=== PATIENT | female | born 1955 | race Caucasian/White ===

== ENCOUNTER 2017-08-10 20:55 | Emergency (ER) | payer BC ==
--- NOTE | 2017-08-10 21:14 | EDM.PDOC ---
ED HPI GENERAL MEDICAL PROBLEM - General Chief Complaint: Genitourinary Problem Stated Complaint: red urine, bladder and low back pain Time Seen by Provider: 08/10/17 21:03 Source of Information: Reports: Patient History Limitations: Reports: No Limitations - History of Present Illness INITIAL COMMENTS - FREE TEXT/NARRATIVE: This patient is a 62 year old female that presents to the ER. Patient reports that yesterday she had mild right flank pain pain to bladder. Then earlier today at about 4pm she noticed increase in pain with pink tinged urine. She reports then about 20 minutes ago she had bright red blood in her urine with even more pain Patient denies cifuentes, dizziness, n, v, d, f, cp, soa, bowel changes. Onset: Today Onset Date: 08/10/17 Onset Time: 16:00 Location: Reports: Back, Radiates to (bladder) Quality: Reports: Burning Severity: Moderate Improves with: Reports: None Worsens with: Reports: None Associated Symptoms: Denies: Confusion, Chest Pain, Cough, cough w sputum, Diaphoresis, Fever/Chills, Headaches, Loss of Appetite, Malaise, Nausea/Vomiting , Rash, Seizure, Shortness of Breath, Syncope, Weakness Lower Abdomen Pain Score (Numeric/FACES): 7 Right Lower Back Pain Score (Numeric/FACES): 7 - Related Data Allergies Allergy/AdvReac Type Severity Reaction Status Date / Time ibuprofen Allergy blood in Verified 08/10/17 20:56 stools Home Meds: Home Meds Ranitidine [Zantac] 150 tab PO DAILY 04/14/14 [History] Fenofibrate [Lipofen] 1 tab PO DAILY 08/10/17 [History] Simvastatin [Zocor] 1 tab PO DAILY 08/10/17 [History] Social & Family History - Tobacco Use Years of Tobacco use: 45 Second Hand Smoke Exposure: No - Alcohol Use Days Per Week of Alcohol Use: 0 - Recreational Drug Use Recreational Drug Use: No ED ROS GENERAL - Review of Systems Review Of Systems: See Below Constitutional: Reports: No Symptoms HEENT: Reports: No Symptoms Respiratory: Reports: No Symptoms Cardiovascular: Reports: No Symptoms Endocrine: Reports: No Symptoms GI/Abdominal: Denies: Abdominal Pain, Nausea, Vomiting : Reports: Dysuria, Flank Pain (right), Hematuria, Pain (painful urination. Pain in bladder. ), Urgency Musculoskeletal: Reports: No Symptoms Skin: Reports: No Symptoms Neurological: Reports: No Symptoms Psychiatric: Reports: No Symptoms Hematologic/Lymphatic: Reports: No Symptoms Immunologic: Reports: No Symptoms ED EXAM, GI/ABD - Physical Exam Exam: See Below Exam Limited By: No Limitations General Appearance: Alert, WD/WN, No Apparent Distress Ears: Normal External Exam, Normal Canal, Hearing Grossly Normal, Normal TMs Nose: Normal Inspection, Normal Mucosa, No Blood Throat/Mouth: Normal Inspection, Normal Lips, Normal Teeth, Normal Gums, Normal Oropharynx, Normal Voice, No Airway Compromise Head: Atraumatic, Normocephalic Neck: Normal Inspection, Supple, Non-Tender, Full Range of Motion Respiratory/Chest: No Respiratory Distress, Lungs Clear, Normal Breath Sounds, No Accessory Muscle Use Cardiovascular: Normal Peripheral Pulses, Regular Rate, Rhythm, No Edema, No Gallop, No JVD, No Murmur, No Rub GI/Abdominal Exam: Soft, Non-Tender, No Organomegaly, No Distention, No Mass, Pelvis Stable Back Exam: Normal Inspection, Full Range of Motion, CVA Tenderness (R). No: CVA Tenderness (L), Decreased Range of Motion, Muscle Spasm, Paraspinal Tenderness, Vertebral Tenderness Extremities: Normal Inspection, Normal Range of Motion, Non-Tender, No Pedal Edema, Normal Capillary Refill Neurological: Alert, Oriented, Normal Gait, No Motor/Sensory Deficits Psychiatric: Normal Affect, Normal Mood Skin Exam: Warm, Dry, Intact, Normal Color, No Rash Lymphatic: No Adenopathy Course - Vital Signs Last Recorded V/S: Last Vital Signs Temp 98.5 F 08/10/17 20:55 Pulse 91 08/10/17 20:55 Resp 18 08/10/17 20:55 BP 145/64 H 08/10/17 20:55 Pulse Ox 97 08/10/17 20:55 - Orders/Labs/Meds Orders: Active Orders 24 hr Category Date Time Status Abdomen Pelvis wo Cont [CT] Stat Exams 08/10/17 21:08 Taken Labs: Laboratory Tests 08/10/17 08/10/17 08/10/17 Range/Units 21:07 21:07 21:07 WBC 10.1 H (5.0-10.0) 10^3/uL RBC 4.46 (4.00-5.50) 10^6/uL Hgb 13.7 (12.0-16.0) g/dL Hct 41.8 (37.0-47.0) % MCV 93.7 (82.0-94.0) fL MCH 30.7 (27.0-32.0) pg MCHC 32.8 L (33.0-38.0) g/dL RDW Coeff of Fausto 13.9 (11.0-15.0) % Plt Count 218 (150-400) 10^3/uL Neut % (Auto) 75.2 (35-85) % Lymph % (Auto) 15.6 (10-55) % Sabine % (Auto) 8.5 (0-16) % Eos % (Auto) 0.6 (0-5) % Baso % (Auto) 0.1 (0-3) % Neut # (Auto) 7.59 H (1.80-7.00) 10^3/uL Lymph # (Auto) 1.58 (1.00-4.80) 10^3/uL Sabine # (Auto) 0.86 H (0.00-0.80) 10^3/uL Eos # (Auto) 0.06 (0.00-0.45) 10^3/uL Baso # (Auto) 0.01 10^3/uL Sodium 139 (136-145) mEq/L Potassium 3.5 (3.5-5.0) mEq/L Chloride 103 (98-106) mEq/L Carbon Dioxide 27 (21-32) mmol/L BUN 11 (7-18) mg/dL Creatinine 1.1 H (0.6-1.0) mg/dL Est Cr Clr Drug Dosing 40.86 mL/min Estimated GFR (MDRD) 50 L (>=60) mL/min Glucose 141 H D (75-99) mg/dL Calcium 9.0 (8.4-10.1) mg/dL Total Bilirubin 0.2 (0.0-1.0) mg/dL AST 4 L (15-37) U/L ALT 13 (12-78) U/L Alkaline Phosphatase 78 (46-116) U/L Total Protein 7.1 (6.4-8.2) g/dL Albumin 3.6 (3.4-5.0) g/dL Urine Color Red (YELLOW) Urine Appearance Slightly cloudy (CLEAR) Urine pH 6.5 (4.5-8.0) Ur Specific [place] 1.020 (1.003-1.020) Urine Protein >=300 H (NEGATIVE) mg/dL Urine Glucose (UA) Negative (NEGATIVE) mg/dL Urine Ketones Trace H (NEGATIVE) mg/dL Urine Occult Blood Large H (NEGATIVE) Urine Nitrite Positive H (NEGATIVE) Urine Bilirubin Small H (NEGATIVE) Urine Urobilinogen 2.0 H (0.2-1.0) EU/dL Ur Leukocyte Esterase Large H (NEGATIVE) Urine RBC Packed H (0-5) /HPF Urine WBC Not seen (0-5) /HPF Ur Squamous Epith Cells Occasional H (NOT SEEN) /HPF Urine Bacteria Occasional H (NOT SEEN) /HPF Meds: Medications Discontinued Medications Generic Name Dose Route Start Last Admin Trade Name Freq PRN Reason Stop Dose Admin Ceftriaxone Sodium 1 gm 08/10/17 21:17 08/10/17 21:30 Rocephin IVPUSH 08/10/17 21:18 1 gm ONETIME ONE Administration Sodium Chloride Confirm 08/10/17 21:21 08/10/17 21:35 Normal Saline Administered 08/10/17 21:22 1,000 ml Dose Administration 1,000 mls @ as directed .ROUTE .STK-MED ONE Ketorolac Tromethamine 30 mg 08/10/17 21:59 08/10/17 22:47 Toradol IVPUSH 08/10/17 22:00 30 mg ONETIME ONE Administration - Radiology Interpretation Free Text/Narrative:: CT: Renal; Discussed with radiologist: Ureter inflammation. No hydro. No stone seen. CT Results Date: 08/10/17 CT Results Time: 23:00 Departure - Departure Time of Disposition: 23:19 Disposition: Home, Self-Care 01 Condition: Good Clinical Impression: UTI, Urinary tract infectious disease - Discharge Information Instructions: Urinary Tract Infection, Adult, [id number] Referrals: Brian Kimble MD [Primary Care Provider] - Forms: ED Department Discharge Additional Instructions: Followup with your primary care provider Return to the ER for worsening of condition or any emergent concerns Increase fluids Pyridium 100mg 1 pill three times a day for 2 days #6 no refill Bactrim DS 1 pill twice a day for 7 days #14 no refill - My Orders Last 24 Hours: My Active Orders 08/10/17 21:08 Abdomen Pelvis wo Cont [CT] Stat - Assessment/Plan Last 24 Hours: My Active Orders 08/10/17 21:08 Abdomen Pelvis wo Cont [CT] Stat Plan: PLEASE SEE RN NOTE FOR PFSH.
[2017-08-10] MEDS ORDERED: cefTRIAXone 1 GM Vial IVPUSH ONE (21:17)
[2017-08-10] MEDS ORDERED: Sodium Chloride 0.9% 1,000 ML ONE (21:21)
[2017-08-10] MEDS ORDERED: Ketorolac 30 MG/ML SDV IVPUSH ONE (21:59)
== END 2017-08-10 23:32 | disposition home or self-care (01) ==
LOC: CC.ED 20:55
DX: N39.0 Urinary tract infection, site not specified (principal); Z79.899 Other long term (current) drug therapy; Z88.6 Allergy status to analgesic agent
CPT/HCPCS: 36415; 74176; 80053; 81001; 85025; 96361; 96374; 96375; 99284; J0696; J1885; J7030

== ENCOUNTER 2019-11-24 20:39 | Emergency (ER) | payer MEDICARE, BC, OTHER ==
[2019-11-24] MEDS ORDERED: Acetaminophen 325 MG Tab PO ONE (20:49)
--- NOTE | 2019-11-24 21:33 | EDM.PDOC ---
ED HPI GENERAL MEDICAL PROBLEM - General Chief Complaint: Fever Stated Complaint: Shakey, chills Time Seen by Provider: 11/24/19 21:05 Source of Information: Reports: Patient History Limitations: Reports: No Limitations - History of Present Illness INITIAL COMMENTS - FREE TEXT/NARRATIVE: Shiva is a 64 yo female who presents to the ED with complaints of all of a sudden becoming extremely shaky. States out of no where she got the chills. Admits she was suppose to work at the [employer] [place] and she called up and the nurse told her to come into the ED to be checked out. States she was feeling well today up until the shakes and chills. States she does have a headache and some sinus congestion. Is concerned of influenza as it is going around the halfway and they started everyone on Tamiflu. She admits she took her first dose of Tamiflu this afternoon and is wondering if she had a reaction to that as well. She denies any shortness of breath. Admits she has had a dry cough. States one of the residents at the halfway coughed on her last weekend who was diagnosed with influenza. She does admit to being extremely anxious as she doesn't like coming in to the doctor. - Related Data Allergies Allergy/AdvReac Type Severity Reaction Status Date / Time ibuprofen Allergy blood in Verified 11/24/19 20:41 stools nitrofurantoin Allergy Cannot Verified 11/24/19 20:41 [From Macrobid] Remember Sulfa (Sulfonamide Allergy Itching Verified 11/24/19 20:41 Antibiotics) Home Meds: Home Meds Fenofibrate [Lipofen] 48 mg PO DAILY 08/10/17 [History] Aspirin [Huber Chewable Aspirin] 81 mg PO DAILY 07/02/19 [History] Omeprazole 20 mg PO DAILY 07/02/19 [History] Prasugrel HCl [Effient] 10 mg PO DAILY 07/23/19 [History] Rosuvastatin Calcium 40 mg PO DAILY 07/23/19 [History] lisinopriL [Lisinopril] 10 mg PO DAILY 07/23/19 [History] Past Medical History Cardiovascular History: Reports: High Cholesterol, Hypertension Other Cardiovascular History: had cp, saw JN, cardiolite stress ordered, done (had some ST elevation and cp after the Lexiscan was injected. Sent to [facility], had stents on 07-03-19 and 07-06-19; says she has had CA of the uterus. She quit smoking for 2 days now, trying to use nicotene lozenges. Discussed. Since home, she denies having any chest pain; Says he has a right hip that bothers her; insertion site for cath right wrist healing; denies any ankle edema. Says she has some varicose veins in her legs, also says she has some kidney stents; saw Kasey for followup on 07-16-19--she listened to her heart and lungs Genitourinary History: Reports: Other (See Below) Other Genitourinary History: UTI'S Oncologic (Cancer) History: Reports: Uterine Social & Family History - Family History Family Medical History: Noncontributory - Tobacco Use Smoking Status *Q: Current Every Day Smoker Years of Tobacco use: 50 Packs/Tins Daily: 1 - Caffeine Use Caffeine Use: Reports: Coffee - Recreational Drug Use Recreational Drug Use: No ED ROS GENERAL - Review of Systems Review Of Systems: Comprehensive ROS is negative, except as noted in HPI. Constitutional: Reports: Fever, Chills, Fatigue HEENT: Reports: Rhinitis, Sinus Problem Respiratory: Reports: Cough. Denies: Shortness of Breath, Wheezing, Pleuritic Chest Pain, Sputum Cardiovascular: Reports: Blood Pressure Problem. Denies: Chest Pain, Edema, Lightheadedness, Palpitations GI/Abdominal: Reports: No Symptoms. Denies: Abdominal Pain, Bloody Stool, Constipation, Diarrhea, Nausea, Vomiting : Reports: No Symptoms Musculoskeletal: Reports: No Symptoms Skin: Reports: No Symptoms Neurological: Reports: Headache. Denies: Confusion, Dizziness, Syncope, Weakness Psychiatric: Reports: Anxiety ED EXAM, GENERAL - Physical Exam Exam: See Below Exam Limited By: No Limitations General Appearance: Alert, No Apparent Distress, Anxious Eye Exam: Bilateral Eye: Conjunctival Injection Ears: Hearing Loss (bilateral hearing aids) Nose: Normal Inspection, No Blood, Clear Rhinorrhea Throat/Mouth: Other (mild posterior erythema, no exudate. ) Head: Atraumatic, Normocephalic. No: Facial Tenderness, Sinus Tenderness Neck: Normal Inspection, Supple. No: Lymphadenopathy (L), Lymphadenopathy (R) Respiratory/Chest: No Respiratory Distress, Lungs Clear, Normal Breath Sounds Cardiovascular: Regular Rate, Rhythm, No Edema, No Murmur GI/Abdominal: Normal Bowel Sounds, Soft, Non-Tender, No Mass Extremities: Normal Inspection Neurological: Alert, Oriented, Normal Cognition, No Motor/Sensory Deficits Psychiatric: Normal Affect, Normal Mood, Anxious Skin Exam: Dry, Intact, Increased Warmth EKG INTERPRETATION EKG Date: 11/24/19 Time: 21:00 Rhythm: NSR Rate (Beats/Min): 80 QRS: Normal ST-T: Normal QT: Normal Course - Vital Signs Last Recorded V/S: Last Vital Signs Temp 100.8 F H 11/24/19 21:00 Pulse 88 11/24/19 21:00 Resp 18 11/24/19 20:39 BP 164/78 H 11/24/19 21:00 Pulse Ox 99 11/24/19 20:39 - Orders/Labs/Meds Orders: Active Orders 24 hr Category Date Time Status EKG Documentation Completion [RC] STAT Care 11/24/19 20:49 Active Meds: Medications Discontinued Medications Generic Name Dose Route Start Last Admin Trade Name Shi PRN Reason Stop Dose Admin Acetaminophen 650 mg 11/24/19 20:49 11/24/19 20:59 Tylenol PO 11/24/19 20:50 650 mg NOW ONE Administration Departure - Departure Time of Disposition: 21:45 Disposition: Home, Self-Care 01 Clinical Impression: Fever and chills, Exposure to influenza - Discharge Information Instructions: Fever, Adult, [id number], Viral Illness, Adult, Influenza, Adult, [id number] Forms: ED Department Discharge Additional Instructions: 1) Tylenol every 4-6 hours as needed for fevers 2) Increase water intake 3) Rest 5) May use over the counter therapies for symptomatic cares 6) May stop Tamiflu if concerns of intolerance to medication 7) If any symptoms as discussed would arise, advise returning to ED. Sepsis Event Note - Evaluation Sepsis Screening Result: No Definite Risk - Focused Exam Vital Signs: Vital Signs Temp Pulse Resp BP Pulse Ox 11/24/19 21:00 100.8 F H 88 164/78 H 11/24/19 20:39 100.2 F 84 18 199/70 H 99 Date Exam was Performed: 11/24/19 Time Exam was Performed: 21:50 - Problem List & Annotations (1) Exposure to influenza SNOMED Code(s): 371423687 Code(s): Z20.828 - CONTACT W AND EXPOSURE TO OTH VIRAL COMMUNICABLE DISEASES Status: Acute Current Visit: Yes (2) Fever and chills SNOMED Code(s): 820519619 Code(s): R50.9 - FEVER, UNSPECIFIED Status: Acute Current Visit: Yes - My Orders Last 24 Hours: My Active Orders 11/24/19 20:49 EKG Documentation Completion [RC] STAT - Assessment/Plan Last 24 Hours: My Active Orders 11/24/19 20:49 EKG Documentation Completion [RC] STAT Plan: Influenza screen negative tonight. Tylenol given in ED and fever started to come down. Will discharge home at this time. Patient given instructions into detail if any further symptoms would arise or any concerns at all, advise returning to ED. Shiva was in agreement.
== END 2019-11-24 22:08 | disposition home or self-care (01) ==
LOC: CC.ED 20:39
DX: R50.9 Fever, unspecified (principal); E78.00 Pure hypercholesterolemia, unspecified; I10 Essential (primary) hypertension; H91.93 Unspecified hearing loss, bilateral; Z20.828 Contact with and (suspected) exposure to other viral communicable diseases; Z88.6 Allergy status to analgesic agent; Z88.2 Allergy status to sulfonamides; Z88.1 Allergy status to other antibiotic agents; Z79.899 Other long term (current) drug therapy; Z79.82 Long term (current) use of aspirin; Z79.02 Long term (current) use of antithrombotics/antiplatelets; Z87.891 Personal history of nicotine dependence
CPT/HCPCS: 87804; 93005; 93010; 99284; 99284-25; A9270-GY

== ENCOUNTER → 2020-02-19 | Day surgery (SDC) | payer MEDICARE, BC ==
[~2020-02-19] MED LIST: Lactated Ringers 1,000 ML IV SCH; Propofol 200 MG/20 ML SDV IV ONE
--- NOTE | 2020-02-19 11:34 | OR ---
DATE OF OPERATION: 02/19/2020 PREOPERATIVE DIAGNOSIS: HISTORY OF POLYPS. POSTOPERATIVE DIAGNOSIS: HISTORY OF POLYPS. SURGEON: Brian Kimble MD PROCEDURE: FULL-LENGTH COLONOSCOPY WITH SNARE POLYPECTOMY X1, FORCEPS POLYP REMOVAL X2. ANESTHESIA: MAC. COMPLICATIONS: None. SPECIMEN: 1. Large villous adenoma, proximal ascending colon. 2. Small sessile polyp, proximal ascending colon. 3. Tubular adenoma, rectosigmoid junction, less than 0.5 cm. FINDINGS: 1. Full-length colonoscopy. 2. Mild sigmoid diverticulosis. 3. Villous adenoma just outside the cecal pouch. 4. Small sessile polyp, proximal ascending colon. 5. Tubular adenoma, rectosigmoid junction. RECOMMENDATIONS: Given the size of the patient's villous lesion in her cecal area, recommend a followup colonoscopy in a year. INDICATIONS: The patient had prior colonoscopy with polyps removed approximately 6 years ago. She was sent for a routine followup in that regard. DESCRIPTION OF PROCEDURE: The patient was prepped and draped, placed in the left lateral decubitus position. A lubricated Olympus colonoscope was inserted and with relative ease advanced to the cecum. The patient is quite tortuous in the sigmoid and transverse areas, but the scope did pass safely and easily. We were able to get into the cecal pouch and directly visualize the valve. A lot of stool present in that area, but we were able to irrigate and suction almost all of it. Just outside the cecal pouch in the most proximal ascending colon, the patient had a relatively flat villous lesion, well over a centimeter along the haustral fold. We were able to remove the majority of it with a snare. About 25% of it was too flat to get into a snare and we removed with 3 forceps biopsies. Just past this in the more mid ascending colon was another small sessile polyp removed with a forceps x2. The rest of the ascending, transverse, descending colons were benign. The patient does have scattered diverticula throughout the sigmoid region. The sigmoid colon itself had no other lesions. In the distal sigmoid, rectosigmoid region, the patient had another stalked small adenoma. It was very difficult to get at, it was at a large turn in her colon which was hard to keep the scope involved, then we were able to get forceps on it twice and remove it in its majority. The rectal vault appeared benign. The patient had a very shallow rectum, it was hard to retroflex, but upon direct withdrawal, no other lesions seen. Air was then suctioned, scope removed without complication. MARY JANE/FLOR /[id number]
== END ==
LOC: CC.SDS 07:30
PROVIDERS: ATTEND Family Medicine
DX: Z12.11 Encounter for screening for malignant neoplasm of colon (principal); D12.0 Benign neoplasm of cecum; D12.2 Benign neoplasm of ascending colon; D12.7 Benign neoplasm of rectosigmoid junction; K57.30 Diverticulosis of large intestine without perforation or abscess without bleeding; I10 Essential (primary) hypertension; E78.5 Hyperlipidemia, unspecified; E78.1 Pure hyperglyceridemia; K21.9 Gastro-esophageal reflux disease without esophagitis; F17.210 Nicotine dependence, cigarettes, uncomplicated; I25.10 Atherosclerotic heart disease of native coronary artery without angina pectoris; Z86.010 Personal history of colon polyps; Z98.890 Other specified postprocedural states; Z78.0 Asymptomatic menopausal state; Z95.5 Presence of coronary angioplasty implant and graft; Z79.899 Other long term (current) drug therapy; Z79.82 Long term (current) use of aspirin
CPT/HCPCS: 00812; 45385; 88305; J2704; J7120

== ENCOUNTER 2021-02-21 12:48 | Inpatient (IN) | payer MEDICARE, BC ==
[2021-02-21] MEDS ORDERED: Ondansetron 4 MG/2 ML SDV IV PRN (13:40)
[2021-02-21] MEDS ORDERED: Acetaminophen 325 MG Tab PO PRN (13:40)
[2021-02-21 14:23] LABS: CHLORIDE,CL 98 mEq/L (98-106); SODIUM,NA 134 mEq/L (136-145)
[2021-02-21] MEDS: Albuterol/Ipratropium 3.0-0.5 MG/3 ML Neb Soln NEB PRN (14:45)
[2021-02-21] MEDS: cefTRIAXone 1 GM Vial IVPUSH SCH (14:45)
[2021-02-21] MEDS: Sodium Chloride 0.9% 1,000 ML IV SCH (14:45)
[2021-02-21] MEDS ORDERED: Temazepam 15 MG Cap PO PRN (20:00)
[2021-02-22] MEDS: Sodium Chloride 0.9% 1,000 ML IV SCH ×2 (03:51→17:16)
[2021-02-22] MEDS ORDERED: Fenofibrate 160 MG Tab PO SCH (08:00)
[2021-02-22] MEDS ORDERED: Pantoprazole 40 MG Tab.CR PO SCH (08:00)
[2021-02-22] MEDS: Albuterol/Ipratropium 3.0-0.5 MG/3 ML Neb Soln NEB PRN ×3 (08:04→21:12)
--- NOTE | 2021-02-22 08:38 | PCM.PN ---
- General Info Date of Service: 02/22/21 Admission Dx/Problem (Free Text): UTI Tachycardia Subjective Update: Patient admits to ongoing fatigue, weakness and malaise today. "just don't feel well". Is coughing frequently, moist. Admits to audible wheezing. Gets short of breath with exertion. Had temp of 101 last night, afebrile this am. Has not been eating well. Admits that burning with urination is getting better. Functional Status: Reports: Pain Controlled, Tolerating Diet, Ambulating, Urinating - Review of Systems General: Reports: Fever, Weakness, Fatigue, Malaise HEENT: Reports: Post Nasal Drip. Denies: Eye Pain, Sinus Congestion Pulmonary: Reports: Shortness of Breath, Cough, Wheezing Cardiovascular: Denies: Chest Pain, Edema, Lightheadedness Gastrointestinal: Reports: Abdominal Pain. Denies: Diarrhea, Nausea, Vomiting Genitourinary: Reports: Frequency, Burning Musculoskeletal: Reports: No Symptoms Skin: Reports: No Symptoms Neurological: Reports: No Symptoms - Patient Data Vitals - Most Recent: Last Vital Signs Temp 98.9 F 02/22/21 03:51 Pulse 62 02/22/21 03:51 Resp 18 02/22/21 03:51 BP 143/65 H 02/22/21 03:51 Pulse Ox 91 L 02/22/21 03:51 Weight - Most Recent: 161 lb 4.8 oz I&O - Last 24 Hours: Intake & Output 02/21/21 02/22/21 02/22/21 22:59 06:59 14:59 Intake Total 983 Balance 983 Lab Results Last 24 Hours: Laboratory Results - last 24 hr 02/21/21 02/21/21 02/21/21 Range/Units 12:59 13:39 14:15 WBC 4.7 L (5.0-10.0) 10^3/uL RBC 4.73 (4.00-5.50) 10^6/uL Hgb 14.1 (12.0-16.0) g/dL Hct 41.8 (37.0-47.0) % MCV 88.4 (82.0-94.0) fL MCH 29.8 (27.0-32.0) pg MCHC 33.7 (33.0-38.0) g/dL RDW Coeff of Fausto 14.2 (11.0-15.0) % Plt Count 188 (150-400) 10^3/uL Neut % (Auto) 63.7 (35-85) % Lymph % (Auto) 24.3 (10-55) % [place] % (Auto) 11.8 (0-16) % Eos % (Auto) 0.2 (0-5) % Baso % (Auto) 0 (0-3) % Neut # (Auto) 3.01 (1.80-7.00) 10^3/uL Lymph # (Auto) 1.15 (1.00-4.80) 10^3/uL [place] # (Auto) 0.56 (0.00-0.80) 10^3/uL Eos # (Auto) 0.01 (0.00-0.45) 10^3/uL Baso # (Auto) 0.00 10^3/uL Sodium 134 L (136-145) mEq/L Potassium 3.9 (3.5-5.0) mEq/L Chloride 98 (98-106) mEq/L Carbon Dioxide 23 (21-32) mmol/L BUN 12 (7-18) mg/dL Creatinine 1.2 H (0.6-1.0) mg/dL Est Cr Clr Drug Dosing TNP Estimated GFR (MDRD) 45 L (>=60) mL/min Glucose 115 H (75-99) mg/dL Lactic Acid (0.4-2.0) mmol/L Calcium 9.0 (8.4-10.1) mg/dL Total Bilirubin 0.6 (0.0-1.0) mg/dL AST 18 (15-37) U/L ALT 28 (12-78) U/L Alkaline Phosphatase 90 (46-116) U/L Lactate Dehydrogenase 186 (100-190) U/L Creatine Kinase 39 (21-215) U/L Troponin I < 0.017 (0.00-0.06) ng/mL C-Reactive Protein 1.1 H (0.2-0.8) mg/dL Total Protein 7.7 (6.4-8.2) g/dL Albumin 3.8 (3.4-5.0) g/dL Urine Color Yellow (YELLOW) Urine Appearance Cloudy (CLEAR) Urine pH 6.5 (4.5-8.0) Ur Specific [place] 1.020 (1.003-1.020) Urine Protein 30 H (NEGATIVE) mg/dL Urine Glucose (UA) Negative (NEGATIVE) mg/dL Urine Ketones Negative (NEGATIVE) mg/dL Urine Occult Blood Small H (NEGATIVE) Urine Nitrite Positive H (NEGATIVE) Urine Bilirubin Negative (NEGATIVE) Urine Urobilinogen 1.0 (0.2-1.0) EU/dL Ur Leukocyte Esterase Moderate H (NEGATIVE) Urine RBC 5-10 H (0-5) /HPF Urine WBC >100 H (0-5) /HPF Ur Squamous Epith Cells Few H (NOT SEEN) /HPF Urine Bacteria Many H (NOT SEEN) /HPF Urinalysis Comment 02/21/21 Range/Units 14:15 WBC (5.0-10.0) 10^3/uL RBC (4.00-5.50) 10^6/uL Hgb (12.0-16.0) g/dL Hct (37.0-47.0) % MCV (82.0-94.0) fL MCH (27.0-32.0) pg MCHC (33.0-38.0) g/dL RDW Coeff of Fausto (11.0-15.0) % Plt Count (150-400) 10^3/uL Neut % (Auto) (35-85) % Lymph % (Auto) (10-55) % [place] % (Auto) (0-16) % Eos % (Auto) (0-5) % Baso % (Auto) (0-3) % Neut # (Auto) (1.80-7.00) 10^3/uL Lymph # (Auto) (1.00-4.80) 10^3/uL [place] # (Auto) (0.00-0.80) 10^3/uL Eos # (Auto) (0.00-0.45) 10^3/uL Baso # (Auto) 10^3/uL Sodium (136-145) mEq/L Potassium (3.5-5.0) mEq/L Chloride (98-106) mEq/L Carbon Dioxide (21-32) mmol/L BUN (7-18) mg/dL Creatinine (0.6-1.0) mg/dL Est Cr Clr Drug Dosing Estimated GFR (MDRD) (>=60) mL/min Glucose (75-99) mg/dL Lactic Acid 1.3 (0.4-2.0) mmol/L Calcium (8.4-10.1) mg/dL Total Bilirubin (0.0-1.0) mg/dL AST (15-37) U/L ALT (12-78) U/L Alkaline Phosphatase (46-116) U/L Lactate Dehydrogenase (100-190) U/L Creatine Kinase (21-215) U/L Troponin I (0.00-0.06) ng/mL C-Reactive Protein (0.2-0.8) mg/dL Total Protein (6.4-8.2) g/dL Albumin (3.4-5.0) g/dL Urine Color (YELLOW) Urine Appearance (CLEAR) Urine pH (4.5-8.0) Ur Specific [place] (1.003-1.020) Urine Protein (NEGATIVE) mg/dL Urine Glucose (UA) (NEGATIVE) mg/dL Urine Ketones (NEGATIVE) mg/dL Urine Occult Blood (NEGATIVE) Urine Nitrite (NEGATIVE) Urine Bilirubin (NEGATIVE) Urine Urobilinogen (0.2-1.0) EU/dL Ur Leukocyte Esterase (NEGATIVE) Urine RBC (0-5) /HPF Urine WBC (0-5) /HPF Ur Squamous Epith Cells (NOT SEEN) /HPF Urine Bacteria (NOT SEEN) /HPF Urinalysis Comment Brandon Results Last 24 Hours: Microbiology 02/21/21 13:39 Anaerobic Blood Culture - Final Blood - Venous Med Orders - Current: Current Medications Acetaminophen (Acetaminophen 325 Mg Tab) 650 mg PO Q4H PRN PRN Reason: Pain (Mild 1-3)/fever Last Admin: 02/21/21 23:39 Dose: 650 mg Documented by: Albuterol/Ipratropium (Albuterol/Ipratropium 3.0-0.5 Mg/3 Ml Neb Soln) 3 ml NEB Q4H PRN PRN Reason: Shortness Of Breath/wheezing Last Admin: 02/22/21 08:04 Dose: 3 ml Documented by: Aspirin (Aspirin 81 Mg Tab.Chew) 81 mg PO DAILY [facility] Atorvastatin Calcium (Atorvastatin 20 Mg Tab) 80 mg PO DAILY@1630 [facility] Ceftriaxone Sodium (Ceftriaxone 1 Gm Vial) 1 gm IVPUSH DAILY@1200 [facility] Last Admin: 02/21/21 14:45 Dose: 1 gm Documented by: Enoxaparin Sodium (Enoxaparin 40 Mg/0.4 Ml Syringe) 40 mg SUBCUT DAILY@1200 [facility] Fenofibrate (Fenofibrate 160 Mg Tab) 80 mg PO DAILY@1630 [facility] Sodium Chloride (Normal Saline) 1,000 mls @ 75 mls/hr IV ASDIRECTED [facility] Last Admin: 02/22/21 03:51 Dose: 75 mls/hr Documented by: Lisinopril (Lisinopril 20 Mg Tab) 20 mg PO DAILY [facility] Ondansetron HCl (Ondansetron 4 Mg/2 Ml Sdv) 4 mg IV Q6H PRN PRN Reason: Nausea/Vomiting Pantoprazole Sodium (Pantoprazole 40 Mg Tab.Cr) 40 mg PO DAILY@1630 [facility] Senna/Docusate Sodium (Docusate Sodium/Sennosides 50-8.6 Mg Tab) 1 tab PO BID PRN PRN Reason: Constipation Temazepam (Temazepam 15 Mg Cap) 15 mg PO BEDTIME PRN PRN Reason: Sleep Discontinued Medications Fenofibrate (Fenofibrate 160 Mg Tab) 80 mg PO DAILY [facility] Pantoprazole Sodium (Pantoprazole 40 Mg Tab.Cr) 40 mg PO DAILY [facility] - Exam General: Alert, Oriented HEENT: Mucous Membr. Moist/[place] Neck: Supple Lungs: Decreased Breath Sounds, Wheezing Cardiovascular: Regular Rate, Regular Rhythm GI/Abdominal Exam: Normal Bowel Sounds, Soft, Tender (tender in suprapubic area) Extremities: Normal Inspection, No Pedal Edema Skin: Warm, Dry Neurological: No New Focal Deficit - Patient Data Lab Results Last 24 hrs: Laboratory Results - last 24 hr 02/21/21 02/21/21 02/21/21 Range/Units 12:59 13:39 14:15 WBC 4.7 L (5.0-10.0) 10^3/uL RBC 4.73 (4.00-5.50) 10^6/uL Hgb 14.1 (12.0-16.0) g/dL Hct 41.8 (37.0-47.0) % MCV 88.4 (82.0-94.0) fL MCH 29.8 (27.0-32.0) pg MCHC 33.7 (33.0-38.0) g/dL RDW Coeff of Fausto 14.2 (11.0-15.0) % Plt Count 188 (150-400) 10^3/uL Neut % (Auto) 63.7 (35-85) % Lymph % (Auto) 24.3 (10-55) % [place] % (Auto) 11.8 (0-16) % Eos % (Auto) 0.2 (0-5) % Baso % (Auto) 0 (0-3) % Neut # (Auto) 3.01 (1.80-7.00) 10^3/uL Lymph # (Auto) 1.15 (1.00-4.80) 10^3/uL [place] # (Auto) 0.56 (0.00-0.80) 10^3/uL Eos # (Auto) 0.01 (0.00-0.45) 10^3/uL Baso # (Auto) 0.00 10^3/uL Sodium 134 L (136-145) mEq/L Potassium 3.9 (3.5-5.0) mEq/L Chloride 98 (98-106) mEq/L Carbon Dioxide 23 (21-32) mmol/L BUN 12 (7-18) mg/dL Creatinine 1.2 H (0.6-1.0) mg/dL Est Cr Clr Drug Dosing TNP Estimated GFR (MDRD) 45 L (>=60) mL/min Glucose 115 H (75-99) mg/dL Lactic Acid (0.4-2.0) mmol/L Calcium 9.0 (8.4-10.1) mg/dL Total Bilirubin 0.6 (0.0-1.0) mg/dL AST 18 (15-37) U/L ALT 28 (12-78) U/L Alkaline Phosphatase 90 (46-116) U/L Lactate Dehydrogenase 186 (100-190) U/L Creatine Kinase 39 (21-215) U/L Troponin I < 0.017 (0.00-0.06) ng/mL C-Reactive Protein 1.1 H (0.2-0.8) mg/dL Total Protein 7.7 (6.4-8.2) g/dL Albumin 3.8 (3.4-5.0) g/dL Urine Color Yellow (YELLOW) Urine Appearance Cloudy (CLEAR) Urine pH 6.5 (4.5-8.0) Ur Specific [place] 1.020 (1.003-1.020) Urine Protein 30 H (NEGATIVE) mg/dL Urine Glucose (UA) Negative (NEGATIVE) mg/dL Urine Ketones Negative (NEGATIVE) mg/dL Urine Occult Blood Small H (NEGATIVE) Urine Nitrite Positive H (NEGATIVE) Urine Bilirubin Negative (NEGATIVE) Urine Urobilinogen 1.0 (0.2-1.0) EU/dL Ur Leukocyte Esterase Moderate H (NEGATIVE) Urine RBC 5-10 H (0-5) /HPF Urine WBC >100 H (0-5) /HPF Ur Squamous Epith Cells Few H (NOT SEEN) /HPF Urine Bacteria Many H (NOT SEEN) /HPF Urinalysis Comment 02/21/21 Range/Units 14:15 WBC (5.0-10.0) 10^3/uL RBC (4.00-5.50) 10^6/uL Hgb (12.0-16.0) g/dL Hct (37.0-47.0) % MCV (82.0-94.0) fL MCH (27.0-32.0) pg MCHC (33.0-38.0) g/dL RDW Coeff of Fausto (11.0-15.0) % Plt Count (150-400) 10^3/uL Neut % (Auto) (35-85) % Lymph % (Auto) (10-55) % [place] % (Auto) (0-16) % Eos % (Auto) (0-5) % Baso % (Auto) (0-3) % Neut # (Auto) (1.80-7.00) 10^3/uL Lymph # (Auto) (1.00-4.80) 10^3/uL [place] # (Auto) (0.00-0.80) 10^3/uL Eos # (Auto) (0.00-0.45) 10^3/uL Baso # (Auto) 10^3/uL Sodium (136-145) mEq/L Potassium (3.5-5.0) mEq/L Chloride (98-106) mEq/L Carbon Dioxide (21-32) mmol/L BUN (7-18) mg/dL Creatinine (0.6-1.0) mg/dL Est Cr Clr Drug Dosing Estimated GFR (MDRD) (>=60) mL/min Glucose (75-99) mg/dL Lactic Acid 1.3 (0.4-2.0) mmol/L Calcium (8.4-10.1) mg/dL Total Bilirubin (0.0-1.0) mg/dL AST (15-37) U/L ALT (12-78) U/L Alkaline Phosphatase (46-116) U/L Lactate Dehydrogenase (100-190) U/L Creatine Kinase (21-215) U/L Troponin I (0.00-0.06) ng/mL C-Reactive Protein (0.2-0.8) mg/dL Total Protein (6.4-8.2) g/dL Albumin (3.4-5.0) g/dL Urine Color (YELLOW) Urine Appearance (CLEAR) Urine pH (4.5-8.0) Ur Specific [place] (1.003-1.020) Urine Protein (NEGATIVE) mg/dL Urine Glucose (UA) (NEGATIVE) mg/dL Urine Ketones (NEGATIVE) mg/dL Urine Occult Blood (NEGATIVE) Urine Nitrite (NEGATIVE) Urine Bilirubin (NEGATIVE) Urine Urobilinogen (0.2-1.0) EU/dL Ur Leukocyte Esterase (NEGATIVE) Urine RBC (0-5) /HPF Urine WBC (0-5) /HPF Ur Squamous Epith Cells (NOT SEEN) /HPF Urine Bacteria (NOT SEEN) /HPF Urinalysis Comment Result Diagrams: 02/22/21 08:31 02/22/21 08:31 Brandon Results Last 24 hrs: Microbiology 02/21/21 13:39 Anaerobic Blood Culture - Final Blood - Venous Sepsis Event Note - Focused Exam Vital Signs: Vital Signs Temp Pulse Resp BP Pulse Ox 02/22/21 03:51 98.9 F 62 18 143/65 H 91 L 02/22/21 00:00 101.1 F H 72 18 125/42 L 92 L - Problem List & Annotations (1) UTI (urinary tract infection) SNOMED Code(s): 69283890 Code(s): N39.0 - URINARY TRACT INFECTION, SITE NOT SPECIFIED Status: Acute Priority: High Current Visit: Yes Qualifiers: Urinary tract infection type: acute cystitis - Problem List Review Problem List Initiated/Reviewed/Updated: Yes - My Orders Last 24 Hours: My Active Orders 02/22/21 08:31 C-REACTIVE PROTEIN [CHEM] Stat CBC WITH AUTO DIFF [HEME] Stat COMPREHENSIVE METABOLIC PN,CMP [CHEM] Stat 02/22/21 08:32 LACTIC ACID [CHEM] Routine - Assessment Assessment:: UTI Tachycardia - Plan Plan:: WBc 4.4, CRP 3.0. Sodium and potassium normal. Urine culture shows gram negative rods. Continue with IV fluids and antibiotics. Await urine culture. Ambulate as able. DuoNebs as needed.
[2021-02-22] MEDS: Aspirin 81 MG Tab.Chew PO SCH (08:50)
[2021-02-22] MEDS: Lisinopril 20 MG Tab PO SCH (08:50)
[2021-02-22] MEDS: cefTRIAXone 1 GM Vial IVPUSH SCH (12:05)
[2021-02-22] MEDS: Enoxaparin 40 MG/0.4 ML Syringe SUBCUT SCH (12:05)
[2021-02-22] MEDS: atorvaSTATin 20 MG Tab PO SCH (15:52)
[2021-02-22] MEDS: Fenofibrate 160 MG Tab PO SCH (15:52)
[2021-02-22] MEDS: Pantoprazole 40 MG Tab.CR PO SCH (15:52)
[2021-02-23] MEDS: Sodium Chloride 0.9% 1,000 ML IV SCH ×2 (06:36→19:47)
[2021-02-23] MEDS: Albuterol/Ipratropium 3.0-0.5 MG/3 ML Neb Soln NEB PRN (07:45)
[2021-02-23] MEDS: Aspirin 81 MG Tab.Chew PO SCH (07:45)
[2021-02-23] MEDS: Lisinopril 20 MG Tab PO SCH (07:45)
--- NOTE | 2021-02-23 11:41 | PN ---
DATE: 02/23/2021 S: Mrs. Spring was admitted on the for weakness and UTI symptoms. She has been on Rocephin. Her microbiology did come back showing E. coli sensitive to cephalosporins. For the most part, she has been doing better. She feels much stronger. Has not been spiking any temps, and other than a slight elevation in her blood pressure, she has been doing well. She does likely suffer from COPD, although she is not on any chronic medications for this, unsure if she has ever had a formal evaluation with pulmonary function studies, but nevertheless, she has been coughing and having some wheezing. She was put on O2 at 2 L and she has been running around 94%. O: GENERAL: She is pleasant and cooperative. HEENT: Grossly benign. NECK: Neck veins are nondistended. LUNGS: Some expiratory wheeze, but overall pretty adequate air movement. CARDIAC: Tones are regular. ABDOMEN: Soft. She has no flank pain to palpation. ASSESSMENT: 1. ESCHERICHIA COLI URINARY TRACT INFECTION. 2. COUGH SECONDARY TO CHRONIC OBSTRUCTIVE PULMONARY DISEASE. 3. NICOTINE ADDICTION. 4. HYPERLIPIDEMIA. 5. HYPERTENSION. P: We will continue with Rocephin. I will try to get pulmonary functions on her and start her on Symbicort today. She has been getting p[place], we will make those scheduled while she is here. Hopefully home tomorrow. MARY JANE/FLOR /[id number]
[2021-02-23] MEDS: Albuterol/Ipratropium 3.0-0.5 MG/3 ML Neb Soln NEB SCH ×3 (11:55→19:45)
[2021-02-23] MEDS: cefTRIAXone 1 GM Vial IVPUSH SCH (11:55)
[2021-02-23] MEDS: Enoxaparin 40 MG/0.4 ML Syringe SUBCUT SCH (11:55)
[2021-02-23] MEDS: atorvaSTATin 20 MG Tab PO SCH (15:48)
[2021-02-23] MEDS: Pantoprazole 40 MG Tab.CR PO SCH (15:49)
[2021-02-23] MEDS: Fenofibrate 160 MG Tab PO SCH (15:49)
[2021-02-24] MEDS ORDERED: Albuterol/Ipratropium 3.0-0.5 MG/3 ML Neb Soln NEB ONE (02:48)
[2021-02-24] MEDS: Albuterol/Ipratropium 3.0-0.5 MG/3 ML Neb Soln NEB SCH ×4 (07:29→20:15)
[2021-02-24] MEDS: Lisinopril 20 MG Tab PO SCH (07:29)
[2021-02-24] MEDS: Aspirin 81 MG Tab.Chew PO SCH (07:29)
[2021-02-24] MEDS: Formoterol/Mometasone 100-5 MCG 8.8 GM Inhaler IH SCH ×2 (10:11→20:25)
[2021-02-24] MEDS: Azithromycin 250 MG Tab PO SCH (10:11)
[2021-02-24] MEDS: cefTRIAXone 1 GM Vial IVPUSH SCH (11:42)
[2021-02-24] MEDS: Enoxaparin 40 MG/0.4 ML Syringe SUBCUT SCH (11:42)
[2021-02-24] MEDS ORDERED: Albuterol 0.083% 2.5 MG/3 ML Neb Soln NEB ONE (12:35)
--- NOTE | 2021-02-24 13:12 | PN ---
DATE: 02/24/2021 S: Mrs. Spring continues to do well from an infectious disease standpoint. She has not been spiking any temp. She denies any urinary complaints at this time and for the most part has been clinically doing well. Reviewed her vital signs. She has not had any fevers, but she is running elevated blood pressure. She is only on lisinopril for that. A bigger concern has been her ongoing issues with cough. She certainly suffers from COPD, maybe undiagnosed, but yet present, and we are waiting on PFTs hopefully today, so we can make a formal diagnosis. She has been on DuoNeb and Symbicort which was hopefully going to be started yesterday, was not started because it is not on her formulary. This morning when I go to see her, she is coughing and wheezing. She does not appear in any obvious distress once her cough is done. She is on a liter of oxygen and she is maintaining her sats around 94%. O: HEENT: Grossly benign. NECK: Her neck veins are flat. LUNGS: Lung sounds are essentially strong, although she has some expiratory wheezing. I do not hear any rales or signs of pneumonia. CARDIAC: Tones appear regular. ABDOMEN: Soft. There is no flank pain in her abdomen. EXTREMITIES: She has no peripheral edema. ASSESSMENT: 1. ESCHERICHIA COLI URINARY TRACT INFECTION. 2. CHRONIC OBSTRUCTIVE PULMONARY DISEASE WITH EXACERBATION. 3. HYPERTENSION. 4. NICOTINE ADDICTION. 5. HYPERLIPIDEMIA. P: We will go with our formulary Dulera 2 puffs twice a day of 100/5. She will be started on Mucinex orally and we are waiting on PFTs to make a diagnosis on her. We will try to get a sputum culture as she was coughing quite a bit while I was in there. I am going to add Zithromax empirically to her regimen until we get her sputum results back. We will continue IV Rocephin for now. I do not think she is ready to go home as of yet, hopefully in the next day or two. MARY JANE/FLOR /[id number]
[2021-02-24] MEDS: guaiFENesin 200 MG Tab PO SCH ×2 (13:22→20:15)
[2021-02-24] MEDS: Fenofibrate 160 MG Tab PO SCH (15:59)
[2021-02-24] MEDS: Pantoprazole 40 MG Tab.CR PO SCH (15:59)
[2021-02-24] MEDS: atorvaSTATin 20 MG Tab PO SCH (16:00)
[2021-02-24] MEDS ORDERED: amLODIPine 10 MG Tab PO SCH (20:00)
[2021-02-24] MEDS ORDERED: amLODIPine 10 MG Tab ONE (20:40)
[2021-02-25] MEDS: Lisinopril 20 MG Tab PO SCH (08:09)
[2021-02-25] MEDS: Albuterol/Ipratropium 3.0-0.5 MG/3 ML Neb Soln NEB SCH (08:09)
[2021-02-25] MEDS: Azithromycin 250 MG Tab PO SCH (08:10)
[2021-02-25] MEDS: guaiFENesin 200 MG Tab PO SCH (08:10)
[2021-02-25] MEDS: Aspirin 81 MG Tab.Chew PO SCH (08:11)
[2021-02-25] MEDS: Formoterol/Mometasone 100-5 MCG 8.8 GM Inhaler IH SCH (08:11)
--- NOTE | 2021-02-25 10:58 | PCM.DCSUM1 ---
Discharge Summary - Hospital Course Free Text/Narrative:: Patient presented to clinic to see Yasmine due to a 1 week history of burning with urination, frequency and "not feeling well". Had not been eating or drinking well the last few days prior. Had low grade temps at home. Also felt like her heart was racing and more short of breath. Has been coughing more. Labs done in clinic showed a positive UA, other labs unremarkable. heart rate 112-120. History of stents x2 in 2019. Admitted for IV antibiotics due to positive UA and flank pain. Diagnosis: Stroke: No Modified Bertie Scale: No Symptoms at All Modified Corrine Scale Score: 0 - Discharge Data Discharge Date: 02/25/21 Discharge Disposition: DC/Tfer W/I Hosp To [place] [id number] Condition: Fair - Referral to Home Health Primary Care Physician: Yasmine Rodriguez NP - Discharge Diagnosis/Problem(s) (1) UTI (urinary tract infection) SNOMED Code(s): 94752868 ICD Code: N39.0 - URINARY TRACT INFECTION, SITE NOT SPECIFIED Status: Acute Priority: High Qualifiers: Urinary tract infection type: acute cystitis - Patient Summary/Data Complications: none Hospital Course: Patient is feeling better in the sense of less burning and frequency with urination. Denies any pain in her flank area. Does continue to have persistent cough, wheezing yet at times. Still requiring oxygen. Sats have dropped in to the low 80s at night. Was 88-90% on oxygen this am. Does continue to feel short of breath, more than her norm. Malaise. Has yet to ambulate much. Did have BM this am and expresses relief as had not had for 1 week. Does not feel comfortable about returning home yet as still short of breath and would need jose e oxygen. Will plan for patient to ambulate, continue IV antibiotics and zithromax. Dulera and nebs. Attempt to wean off oxygen if able or will need to be set up for home O2. - Patient Instructions Diet: Usual Diet as Tolerated Activity: As Tolerated - Discharge Plan *PRESCRIPTION DRUG MONITORING PROGRAM REVIEWED*: Not Applicable *COPY OF PRESCRIPTION DRUG MONITORING REPORT IN PATIENT SHIRLENE: Not Applicable Home Medications: Home Meds Fenofibrate [Lipofen] 48 mg PO DAILY 08/10/17 [History] Aspirin [Huber Chewable Aspirin] 81 mg PO DAILY 07/02/19 [History] Omeprazole 20 mg PO DAILY 07/02/19 [History] Rosuvastatin Calcium 40 mg PO DAILY 07/23/19 [History] lisinopriL [Lisinopril] 20 mg PO DAILY 07/23/19 [History] Patient Handouts: Urinary Tract Infection, Adult - Discharge Summary/Plan Comment DC Time >30 min.: No - General Info Date of Service: 02/25/21 Admission Dx/Problem (Free Text: UTI Tachycardia Functional Status: Reports: Pain Controlled, Tolerating Diet, Urinating. Denies: Ambulating - Review of Systems General: Reports: Weakness, Fatigue, Malaise HEENT: Denies: Ear Pain, Sinus Congestion, Rhinitis Pulmonary: Reports: Shortness of Breath, Cough, Wheezing Cardiovascular: Denies: Chest Pain, Edema, Lightheadedness Gastrointestinal: Denies: Abdominal Pain, Nausea, Vomiting Genitourinary: Reports: No Symptoms Musculoskeletal: Reports: No Symptoms Skin: Reports: No Symptoms Neurological: Reports: Weakness - Patient Data Vitals - Most Recent: Last Vital Signs Temp 97.5 F 02/25/21 08:00 Pulse 89 02/25/21 08:00 Resp 20 02/25/21 08:00 BP 134/48 L 02/25/21 08:09 Pulse Ox 90 L 02/25/21 08:00 Weight - Most Recent: 161 lb 4.8 oz JUANITA Results - Last 24 hrs: Microbiology 02/24/21 09:08 Gram Stain - Final Sputum - Expectorated Sputum Culture - Preliminary 02/21/21 13:39 Aerobic Blood Culture - Preliminary Blood - Venous - Lab Draw NO GROWTH AFTER 3 DAYS Anaerobic Blood Culture - Preliminary NO GROWTH AFTER 3 DAYS 02/21/21 13:39 Aerobic Blood Culture - Preliminary Blood - Venous NO GROWTH AFTER 3 DAYS Anaerobic Blood Culture - Final Med Orders - Current: Current Medications Discontinued Medications Acetaminophen (Acetaminophen 325 Mg Tab) 650 mg PO Q4H PRN PRN Reason: Pain (Mild 1-3)/fever Last Admin: 02/21/21 23:39 Dose: 650 mg Documented by: Albuterol (Albuterol 0.083% 2.5 Mg/3 Ml Neb Soln) 2.5 mg NEB ONETIME ONE Stop: 02/24/21 12:36 Last Admin: 02/24/21 13:44 Dose: Not Given Documented by: Albuterol/Ipratropium (Albuterol/Ipratropium 3.0-0.5 Mg/3 Ml Neb Soln) 3 ml NEB Q4H PRN PRN Reason: Shortness Of Breath/wheezing Last Admin: 02/23/21 07:45 Dose: 3 ml Documented by: Albuterol/Ipratropium (Albuterol/Ipratropium 3.0-0.5 Mg/3 Ml Neb Soln) 3 ml NEB QIDRT [facility] Last Admin: 02/25/21 08:09 Dose: 3 ml Documented by: Albuterol/Ipratropium (Albuterol/Ipratropium 3.0-0.5 Mg/3 Ml Neb Soln) 3 ml NEB ONETIME ONE Stop: 02/24/21 02:49 Last Admin: 02/24/21 02:57 Dose: 3 ml Documented by: Amlodipine Besylate (Amlodipine 10 Mg Tab) 5 mg PO BEDTIME [facility] Last Admin: 02/24/21 20:20 Dose: 5 mg Documented by: Amlodipine Besylate (Amlodipine 10 Mg Tab) Confirm Administered Dose 10 mg .ROUTE .STK-MED ONE Stop: 02/24/21 20:41 Last Admin: 02/24/21 20:25 Dose: Not Given Documented by: Aspirin (Aspirin 81 Mg Tab.Chew) 81 mg PO DAILY [facility] Last Admin: 02/25/21 08:11 Dose: 81 mg Documented by: Atorvastatin Calcium (Atorvastatin 20 Mg Tab) 80 mg PO DAILY@1630 [facility] Last Admin: 02/24/21 16:00 Dose: 80 mg Documented by: Azithromycin (Azithromycin 250 Mg Tab) 500 mg PO DAILY [facility] Last Admin: 02/25/21 08:10 Dose: 500 mg Documented by: Ceftriaxone Sodium (Ceftriaxone 1 Gm Vial) 1 gm IVPUSH DAILY@1200 [facility] Last Admin: 02/24/21 11:42 Dose: 1 gm Documented by: Enoxaparin Sodium (Enoxaparin 40 Mg/0.4 Ml Syringe) 40 mg SUBCUT DAILY@1200 [facility] Last Admin: 02/24/21 11:42 Dose: 40 mg Documented by: Fenofibrate (Fenofibrate 160 Mg Tab) 80 mg PO DAILY [facility] Last Admin: 02/22/21 18:11 Dose: Not Given Documented by: Fenofibrate (Fenofibrate 160 Mg Tab) 80 mg PO DAILY@1630 [facility] Last Admin: 02/24/21 15:59 Dose: 80 mg Documented by: Guaifenesin (Guaifenesin 200 Mg Tab) 400 mg PO TID [facility] Last Admin: 02/25/21 08:10 Dose: 400 mg Documented by: Sodium Chloride (Normal Saline) 1,000 mls @ 75 mls/hr IV ASDIRECTED [facility] Last Admin: 02/23/21 19:47 Dose: 75 mls/hr Documented by: Lisinopril (Lisinopril 20 Mg Tab) 20 mg PO DAILY [facility] Last Admin: 02/25/21 08:09 Dose: 20 mg Documented by: Mometasone Furoate/Formoterol Fumar (Formoterol/Mometasone 100-5 Mcg 8.8 Gm Inhaler) 0 puff IH BIDRT [facility] Last Admin: 02/25/21 08:11 Dose: 2 inh Documented by: Ondansetron HCl (Ondansetron 4 Mg/2 Ml Sdv) 4 mg IV Q6H PRN PRN Reason: Nausea/Vomiting Pantoprazole Sodium (Pantoprazole 40 Mg Tab.Cr) 40 mg PO DAILY [facility] Last Admin: 02/22/21 18:12 Dose: Not Given Documented by: Pantoprazole Sodium (Pantoprazole 40 Mg Tab.Cr) 40 mg PO DAILY@1630 [facility] Last Admin: 02/24/21 15:59 Dose: 40 mg Documented by: Senna/Docusate Sodium (Docusate Sodium/Sennosides 50-8.6 Mg Tab) 1 tab PO BID PRN PRN Reason: Constipation Temazepam (Temazepam 15 Mg Cap) 15 mg PO BEDTIME PRN PRN Reason: Sleep - Exam Quality Assessment: Reports: Supplemental Oxygen General: Reports: Alert, Oriented HEENT: Reports: Mucous Membr. Moist/[place] Neck: Reports: Supple Lungs: Reports: Decreased Breath Sounds, Wheezing Cardiovascular: Reports: Regular Rate, Regular Rhythm GI/Abdominal Exam: Normal Bowel Sounds, Soft, Non-Tender Extremities: Normal Inspection, No Pedal Edema Skin: Reports: Warm, Dry Neurological: Reports: No New Focal Deficit
== END 2021-02-25 10:43 | disposition swing bed (61) | DRG 690 ==
LOC: CC.FCMC 12:48 → CC.MS 13:40 → UNDOADMIN 14:13 → CC.MS 14:13 → UNDODISIN 02-25 10:43
PROVIDERS: ADMIT Nurse Practitioner Family; ATTEND Family Medicine
DX: N30.00 Acute cystitis without hematuria (principal); J44.1 Chronic obstructive pulmonary disease with (acute) exacerbation; R65.10 Systemic inflammatory response syndrome (SIRS) of non-infectious origin without acute organ dysfunction; I10 Essential (primary) hypertension; E78.5 Hyperlipidemia, unspecified; B96.20 Unspecified Escherichia coli [E. coli] as the cause of diseases classified elsewhere; F17.210 Nicotine dependence, cigarettes, uncomplicated; Z95.5 Presence of coronary angioplasty implant and graft; Z79.82 Long term (current) use of aspirin; Z79.899 Other long term (current) drug therapy; Z88.2 Allergy status to sulfonamides; Z88.6 Allergy status to analgesic agent; Z88.1 Allergy status to other antibiotic agents; Z90.710 Acquired absence of both cervix and uterus
CPT/HCPCS: 36415; 71046; 80048; 80053; 81001; 82550; 83605; 83615; 84484; 85025; 86140; 87040; 87070; 87077; 87086; 87088; 87186; 87205; 93005; 93010; 94640; A9270-GY; J0696; J1650; J7030; J7620-GY

== ENCOUNTER 2021-02-25 10:26 | Inpatient (IN) | payer MEDICARE, BC ==
[2021-02-25] MEDS ORDERED: Acetaminophen 325 MG Tab PO PRN (11:21)
[2021-02-25] MEDS ORDERED: Temazepam 15 MG Cap PO PRN (11:21)
[2021-02-25] MEDS ORDERED: Ondansetron 4 MG/2 ML SDV IV PRN (11:21)
[2021-02-25] MEDS: cefTRIAXone 1 GM Vial IVPUSH SCH (12:19)
[2021-02-25] MEDS: Enoxaparin 40 MG/0.4 ML Syringe SUBCUT SCH (12:20)
[2021-02-25] MEDS: Albuterol/Ipratropium 3.0-0.5 MG/3 ML Neb Soln NEB SCH ×3 (12:20→19:49)
[2021-02-25] MEDS: guaiFENesin 200 MG Tab PO SCH ×2 (13:42→19:50)
[2021-02-25] MEDS: atorvaSTATin 20 MG Tab PO SCH (16:00)
[2021-02-25] MEDS: Fenofibrate 160 MG Tab PO SCH (16:01)
[2021-02-25] MEDS: Pantoprazole 40 MG Tab.CR PO SCH (16:01)
[2021-02-25] MEDS: Formoterol/Mometasone 100-5 MCG 8.8 GM Inhaler IH SCH (19:49)
[2021-02-25] MEDS: amLODIPine 10 MG Tab PO SCH (20:04)
[2021-02-25] MEDS ORDERED: amLODIPine 10 MG Tab ONE (20:22)
[2021-02-26] MEDS: Aspirin 81 MG Tab.EC PO SCH (07:45)
[2021-02-26] MEDS: guaiFENesin 200 MG Tab PO SCH ×3 (07:45→21:08)
[2021-02-26] MEDS: Lisinopril 20 MG Tab PO SCH (07:45)
[2021-02-26] MEDS: Albuterol/Ipratropium 3.0-0.5 MG/3 ML Neb Soln NEB SCH ×4 (07:46→21:06)
[2021-02-26] MEDS: Azithromycin 250 MG Tab PO SCH (07:46)
[2021-02-26] MEDS: Formoterol/Mometasone 100-5 MCG 8.8 GM Inhaler IH SCH ×2 (07:47→21:06)
[2021-02-26] MEDS: Enoxaparin 40 MG/0.4 ML Syringe SUBCUT SCH (13:21)
[2021-02-26] MEDS: cefTRIAXone 1 GM Vial IVPUSH SCH (13:22)
[2021-02-26] MEDS: Pantoprazole 40 MG Tab.CR PO SCH (16:56)
[2021-02-26] MEDS: Fenofibrate 160 MG Tab PO SCH (16:56)
[2021-02-26] MEDS: atorvaSTATin 20 MG Tab PO SCH (16:56)
[2021-02-26] MEDS: amLODIPine 10 MG Tab PO SCH (21:12)
[2021-02-26] MEDS ORDERED: amLODIPine 10 MG Tab ONE (21:30)
[2021-02-27] MEDS: Albuterol/Ipratropium 3.0-0.5 MG/3 ML Neb Soln NEB SCH ×4 (07:56→20:17)
[2021-02-27] MEDS: Lisinopril 20 MG Tab PO SCH (07:56)
[2021-02-27] MEDS: guaiFENesin 200 MG Tab PO SCH ×3 (07:57→20:17)
[2021-02-27] MEDS: Formoterol/Mometasone 100-5 MCG 8.8 GM Inhaler IH SCH ×2 (07:57→20:17)
[2021-02-27] MEDS: Azithromycin 250 MG Tab PO SCH (07:57)
[2021-02-27] MEDS: Aspirin 81 MG Tab.EC PO SCH (07:57)
[2021-02-27] MEDS: Enoxaparin 40 MG/0.4 ML Syringe SUBCUT SCH (11:51)
[2021-02-27] MEDS: cefTRIAXone 1 GM Vial IVPUSH SCH (11:52)
[2021-02-27] MEDS: Pantoprazole 40 MG Tab.CR PO SCH (16:47)
[2021-02-27] MEDS: Fenofibrate 160 MG Tab PO SCH (16:47)
[2021-02-27] MEDS: atorvaSTATin 20 MG Tab PO SCH (16:48)
[2021-02-27] MEDS ORDERED: amLODIPine 10 MG Tab ONE (20:05)
[2021-02-27] MEDS: amLODIPine 10 MG Tab PO SCH (20:17)
[2021-02-28] MEDS: Albuterol/Ipratropium 3.0-0.5 MG/3 ML Neb Soln NEB SCH (08:04)
[2021-02-28] MEDS: guaiFENesin 200 MG Tab PO SCH (08:04)
[2021-02-28] MEDS: Azithromycin 250 MG Tab PO SCH (08:04)
[2021-02-28] MEDS: Formoterol/Mometasone 100-5 MCG 8.8 GM Inhaler IH SCH (08:04)
[2021-02-28] MEDS: Aspirin 81 MG Tab.EC PO SCH (08:05)
[2021-02-28] MEDS: Lisinopril 20 MG Tab PO SCH (08:05)
--- NOTE | 2021-03-01 02:17 | DISCH ---
Discharge from a swing bed. ADMISSION DIAGNOSES: 1. Urinary tract infection. 2. Chronic obstructive pulmonary disease with exacerbation. 3. Hypertension. DISCHARGE DIAGNOSIS: 1. URINARY TRACT INFECTION. 2. CHRONIC OBSTRUCTIVE PULMONARY DISEASE WITH EXACERBATION. 3. HYPERTENSION. HISTORY: Shiva was admitted to Acute Care with weakness and a UTI. She was at the same time having a lot of issues with her breathing and COPD. She has never had a formal diagnosis of COPD but is a long-term smoker and had a lot of chronic shortness of breath and wheezing. She was managed in Acute Care, and her UTI was under control, but continued to have a lot of shortness of breath, requiring supplemental O2, so we put her in swing bed for further management. SWING BED COURSE: The patient had been started on Dulera and nebs, and she is doing well. She initially needed 2 L of O2 to maintain sats above 90. She has been weaned off her oxygen and is feeling better in that regard. She did get both Zithromax and Rocephin while in our facility because of her COPD exacerbation. She will finish the course of Zithromax and Rocephin as an outpatient. She has been started on Dulera 100/5 two puffs b.i.d. along with DuoNeb t.i.d. At this time, she clinically looks well and is not requiring supplemental O2, and we will follow her up in the clinic as an outpatient. COMPLICATIONS: During her stay were none. CONSULTATIONS: None. DISPOSITION: Discharged home. ASHLEIGH /[id number]
== END 2021-02-28 10:49 | disposition home or self-care (01) | DRG 191 ==
LOC: CC.MS 10:26 → UNDOADMIN 10:45
PROVIDERS: ADMIT Nurse Practitioner Family; ATTEND Family Medicine
DX: J44.1 Chronic obstructive pulmonary disease with (acute) exacerbation (principal); N39.0 Urinary tract infection, site not specified; I10 Essential (primary) hypertension; Z99.81 Dependence on supplemental oxygen; Z79.82 Long term (current) use of aspirin; Z79.899 Other long term (current) drug therapy
CPT/HCPCS: 36415; 71046; 80048; 85025; 86140; 94640; A9270-GY; J0696; J1650; J7620-GY